=== PATIENT | female | born 2000 | race Caucasian/White ===

== ENCOUNTER 2023-12-24 10:26 | Emergency (ER) | payer BC, SELFPAY ==
[2023-12-24] VITALS (9 sets, daily range): BP systolic 101–145; BP diastolic 77–94; PULSE 62–85; RESP 13–24; TEMP 36.8; O2SAT 96–100
--- NOTE | ~2023-12-24 | CT_ITS ---
CT brain wo con Ordering provider: Jenn Gaitan PA-C History: 23 years Female with . syncope 2 days ago, [facility] . Comparison: None. Technique: CT of the head without contrast. Radiation reduction technique utilized. DLP is 605.33 mGy-cm. FINDINGS: BRAIN PARENCHYMA AND CSF SPACES: No midline shift, mass effect or hemorrhage. The brain parenchyma a nd CSF spaces are otherwise normal. VISUALIZED PARANASAL SINUSES: Right maxillary sinus disease. MASTOIDS: Well aerated. BONES: The bones appear intact. SOFT TISSUES: Visualized nasopharynx is normal. Superficial soft tissues are normal. IMPRESSION: No acute intracranial findings. Reviewed, dictated and finalized at location A.
--- NOTE | 2023-12-24 10:50 | ECG_ITS ---
Test Date: 2023-12-24 10:58:04 Measurements Intervals [place] Rate: 75 P: 51 AR: 128 QRS: 72 QRSD: 89 T: 28 QT: 340 QTc: 381 Interpretive Statements SINUS RHYTHM WITH SINUS ARRHYTHMIA MINIMAL Q WAVES- INFERIOR LEADS BASELINE ARTIFACT- I, II, III, AVR, AVL, AVF BORDERLINE ECG No previous ECG available for comparison Electronically Signed On 12-24-2023 11:08:39 CDT by Orlando Jacobsen D.O.
[2023-12-24 10:53] LABS: BEDSIDEPREGUCG Negative
[2023-12-24 11:22] LABS: Appearance Urine Clear (Clear); Bacteria Urine Rare /hpf; Bilirubin Urine Negative (Negative); Blood Urine 1+ (Negative); Color Urine Dark Yellow (Yellow); Glucose Urine UA Negative (Negative); Ketones Urine Negative (Negative); Leukocyte Esterase Ur Trace LEU/UL (Negative); Nitrate Urine Positive (Negative); Non Pathogenic Casts 0-2; Protein Urine Negative (Negative); RBC Urine 0-2 /hpf (0-2); Specific Grav Ur 1.013 (1.001-1.035); Squamous Epithelial Cell Urine Few /hpf (Few); WBC Urine 0-5 /hpf (0-3); pH Urine 7.5 (5.0-9.0)
[2023-12-24 11:23] LABS: Add Urine Microscopic? YES
--- NOTE | 2023-12-24 11:23 | ED.HA ---
HPI - Headache General Chief Complaint: Headache Stated Complaint: headache Time Seen by Provider: 12/24/23 10:37 Source: patient Mode of arrival: ambulatory Limitations: no limitations History of Present Illness HPI Narrative: Patient is a 23-year-old female who presents the ED report of headache and possible syncopal vs seizure episode. Patient reports she was on a float trip on Sunday when she had a possible syncopal episode. She reports she began feeling dizzy/lightheaded, with chest tightness and a diffuse flushed feeling. She then reportedly passed out. Her friends noted she had some twitching during the episode but was able to easily arouse. Patient reports she has had syncopal episodes in the past and felt this is what happened. Reports history of stress-induced seizures within her family. Denies personal history of seizure disorder. Patient states since then, she has had a persistent headache. She began feeling slightly dizzy while getting ready for work this morning which prompted her to come to the ED. She states she just wanted to be evaluated if she had a seizure. Denies further dizziness, lightheadedness, denies pain aside from a headache. Denies vision changes Related Data Allergies Allergy/AdvReac Type Severity Reaction Status Date / Time No Known Allergies Allergy Unknown Unverified 03/15/19 15:12 Review of Systems Review of Systems: CONSTITUTIONAL: Reports hot flash. denies fevers. CARDIOVASCULAR: See HPI RESPIRATORY: Denies dyspnea. GASTROINTESTINAL: Denies abdominal pain, nausea, vomiting MUSCULOSKELETAL: Denies back pain, extremity pain, myalgia. NEUROLOGIC: See HPI All systems reviewed & are unremarkable except as noted in HPI and below Exam Narrative: GENERAL: Well appearing, obese with BMI of 32.2, non-toxic, in no acute distress. HEAD: Normocephalic, atraumatic. EYES: PERRL/EOMI, conjunctivae clear bilaterally. No nystagmus. NECK: Supple. No meningeal signs. RESPIRATORY: Airway patent, respirations nonlabored. Clear to auscultation bilaterally, no rales, rhonchi, wheezing. CARDIOVASCULAR: Regular rate and rhythm without murmurs, rubs, or gallops. Peripheral pulses 2+ and equal bilaterally. MUSCULOSKELETAL: Moves all extremities. No gross deformities. SKIN: Warm, dry, normal color. No rashes. NEURO: A&O X3. Speech clear. Follows commands. CN II-XII grossly intact. Sensation grossly intact. Steady gait. No ataxic movements. Strength 5/5 in upper and lower extremities bilaterally. No pronator drift. 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 PSYCHIATRIC: Appropriate mood and affect. Normal interaction. Course Vital Signs Vital signs: Vital Signs Temperature 98.2 F 12/24/23 10:40 Pulse Rate 76 12/24/23 10:40 Respiratory Rate 16 12/24/23 10:40 Blood Pressure 145/89 H 12/24/23 10:40 Pulse Oximetry 97 12/24/23 10:40 Oxygen Delivery Room Air 12/24/23 10:40 Temperature 98.2 F 12/24/23 10:40 Pulse Rate 64 12/24/23 13:02 Respiratory Rate 15 12/24/23 13:02 Blood Pressure 126/94 H 12/24/23 13:02 Pulse Oximetry 99 12/24/23 13:02 Oxygen Delivery Room Air 12/24/23 10:40 MDM - Headache MDM Narrative Medical decision making narrative: Patient presented to ED with headache, possible syncopal episode versus seizure activity on Sunday. Patient reports history of stress-induced seizures within her family, denies personal history of seizures. Hx of previous syncope. Sx's seem most consistent with vasovagal syncope with distinct prodrome prior to episode. Vital signs are stable upon arrival. She is neurologically intact. No focal deficits. Only complaint is a headache. Orthostatic vital signs were evaluated with slight drop from sitting to standing. Fluids initiated. Basic laboratory studies are unremarkable. No leukocytosis or anemia. Stable electrolytes, stable kidney function. Normal magnesium. EKG is without ischemic changes. Troponin undetectable. Urine
[2023-12-24 11:31] LABS: Basophils Absolute Auto 0.1 K/mm3 (0.0-0.1); Eosinophils Absolute Auto 0.2 K/mm3 (0-0.3); Hematocrit 41.8 % (37.0-47.0); Hemoglobin 14.3 g/dL (12.0-15.0); Immature Granulocyte Absolute 0.01 K/mm3 (0.00-0.031); Immature Granulocyte Percent A 0.1 % (0-0.5); Lymphocytes Absolute Auto 1.91 K/mm3 (0.9-3.2); Mean Corpuscular HGB Conc 34.2 g/dl (32-36); Mean Corpuscular Hemoglobin 29.5 pg (26-34); Mean Corpuscular Volume 86.4 fl (80-100); Mean Platelet Volume 10.6 fl (7.4-10.4); Monocytes Absolute Auto 0.4 K/mm3 (0.1-0.6); Monocytes Percent Auto 5.7 % (2.6-8.5); Neutrophils Absolute Auto 4.7 K/mm3 (1.3-6.7); Neutrophils Percent Auto 64.2 % (45.5-73.1); Platelet Count Result 253 k/mm3 (150-375); Red Blood Count 4.84 M/mm3 (4.2-5.4); Red Cell Distribution Width 13.1 % (11.5-14.5); White Blood Count 7.4 K/mm3 (4.5-10.0)
[2023-12-24] MEDS: SODIUM CHLORIDE 0.9% IV 1,000 ML 999 ML IV CONT ×2 (11:31→11:41)
[2023-12-24 11:41] LABS: Alanine Aminotransferase 25 U/L (6-35); Albumin Level 4.6 g/dL (3.5-5.1); Alkaline Phosphatase 49 U/L (38-126); Anion Gap 9 mmol/L (4-12); Aspartate Amino Transferase 22 U/L (14-36); Bilirubin,Total 1.2 mg/dL (0.2-1.3); Blood Urea Nitrogen 8 mg/dL (7-17); Calcium 9.3 mg/dL (8.4-10.2); Carbon Dioxide 27 mmol/L (22-30); Chloride 103 mmol/L (98-107); Estimated CRCL calculation 113 ml/min; Estimated Glomerular Filt Rate > 60; Glucose 94 mg/dL (65-110); Magnesium 1.9 mg/dL (1.6-2.3); Sodium 139 mmol/L (137-145)
[2023-12-24 11:52] LABS: Troponin I < 0.012 ng/mL (0.000-0.034)
[2023-12-24] MEDS: ACETAMINOPHEN 500 MG TABLET 1000 MG PO (12:17)
== END 2023-12-24 14:05 | disposition home or self-care (01) ==
PROVIDERS: Emergency Provider Physician Assistant; PCP Family Medicine
DX: I95.1 Orthostatic hypotension (principal); R82.90 Unspecified abnormal findings in urine
CPT/HCPCS: 36415; 70450; 80053; 81001; 81025; 83735; 84484; 85025; 87086; 93005; 96360; 99284; A9270; J7030